=== PATIENT | female | born 1975 | race Caucasian/White ===

== ENCOUNTER 2019-12-23 12:18 | Emergency (ER) | payer OTHER ==
--- NOTE | 2019-12-23 13:16 | EDM.PDOC ---
ED HPI GENERAL MEDICAL PROBLEM - General Chief Complaint: General Stated Complaint: SHAKY, DOES NOT FEEL WELL Time Seen by Provider: 12/23/19 13:08 Source of Information: Reports: Patient History Limitations: Reports: No Limitations - History of Present Illness INITIAL COMMENTS - FREE TEXT/NARRATIVE: HISTORY AND PHYSICAL: History of present illness: Patient is a 44-year-old female presents to the ED with complaint of lightheaded and shakiness. She states she was at breakfast this morning waiting on her food when she began feeling shaky, lightheaded, clammy and nauseous. She states this only lasted briefly before resolving on its own. She states she had not had anything to eat this morning. Blood sugar on arrival is 75. Patient denies significant past medical history. She states she had a partial hysterectomy over 1 month ago and is on iron supplements currently as she had some blood loss with this surgery. Review of systems: As per history of present illness and below otherwise all systems reviewed and negative. Past medical history: As per history of present illness and as reviewed below otherwise noncontributory. Surgical history: As per history of present illness and as reviewed below otherwise noncontributory. Social history: No reported history of drug or alcohol abuse. Family history: As per history of present illness and as reviewed below otherwise noncontributory. Physical exam: General: Patient sitting comfortably in no acute distress and nontoxic appearing HEENT: Atraumatic, normocephalic, pupils reactive, negative for conjunctival pallor or scleral icterus, mucous membranes moist, throat clear, neck supple, nontender, trachea midline. No meningeal signs. Lungs: Clear to auscultation, breath sounds equal bilaterally, chest nontender. Heart: S1S2, regular, negative for clicks, rubs, or overt murmur. Abdomen: Soft, nondistended, nontender. Negative for masses or hepatosplenomegaly. Negative for costovertebral tenderness. No rigidity, rebound , guarding. Pelvis: Stable nontender. Genitourinary: Deferred. Rectal: Deferred. Extremities: Atraumatic, negative for cords or calf pain. Neurovascular unremarkable. Neuro: Awake, alert, oriented. Cranial nerves II through XII unremarkable. Cerebellum unremarkable. Motor and sensory unremarkable throughout. Exam nonfocal. Notes: Diagnostics: CBC, CMP, EKG Therapeutics: none Prescriptions: none Impression: Medical screening exam, hypoglycemia Plan: Follow-up with primary care provider Return to ED as needed discussed Definitive disposition and diagnosis as appropriate pending reevaluation and review of above. - Related Data Allergies Allergy/AdvReac Type Severity Reaction Status Date / Time No Known Allergies Allergy Verified 12/23/19 12:51 Home Meds: Home Meds . [No Known Home Meds] 12/23/19 [History] Past Medical History - Past Surgical History Female Surgical History: Reports: Hysterectomy Social & Family History - Tobacco Use Smoking Status *Q: Never Smoker - Recreational Drug Use Recreational Drug Use: No ED ROS GENERAL - Review of Systems Review Of Systems: Comprehensive ROS is negative, except as noted in HPI. ED EXAM, GENERAL - Physical Exam Exam: See Below (see dictation) Course - Vital Signs Last Recorded V/S: Last Vital Signs Temp 98.6 F 12/23/19 12:51 Pulse 92 12/23/19 12:51 Resp 16 12/23/19 12:51 BP 128/66 12/23/19 12:51 Pulse Ox 100 12/23/19 12:51 - Orders/Labs/Meds Orders: Active Orders 24 hr Category Date Time Status EKG Documentation Completion [RC] STAT Care 12/23/19 13:08 Ordered Labs: Laboratory Tests 12/23/19 12/23/19 12/23/19 Range/Units 12:49 13:38 13:38 WBC 6.38 (4.0-11.0) K/uL RBC 4.40 (4.30-5.90) M/uL Hgb 12.3 (12.0-16.0) g/dL Hct 38.1 (36.0-46.0) % MCV 86.6 (80.0-98.0) fL MCH 28.0 (27.0-32.0) pg MCHC 32.3 (31.0-37.0) g/dL RDW Std Deviation 53.0 (28.0-62.0) fl RDW Coeff of Garcia 17 H (11.0-15.0) % Plt Count 335 (150-400) K/uL MPV 10.20 (7.40-12.00) fL Neut % (Auto) 65.3 (48.0-80.0) % Lymph % (Auto) 28.7 (16.0-40.0) % Real % (Auto) 5.2 (0.0-15.0) % Eos % (Auto) 0.6 (0.0-7.0) % Baso % (Auto) 0.2 (0.0-1.5) % Neut # (Auto) 4.2 (1.4-5.7) K/uL Lymph # (Auto) 1.8 (0.6-2.4) K/uL Real # (Auto) 0.3 (0.0-0.8) K/uL Eos # (Auto) 0.0 (0.0-0.7) K/uL Baso # (Auto) 0.0 (0.0-0.1) K/uL Nucleated RBC % 0.0 /100WBC Nucleated RBCs # 0 K/uL Sodium 143 (136-145) mmol/L Potassium 4.0 (3.5-5.1) mmol/L Chloride 106 (98-107) mmol/L Carbon Dioxide 24.5 (21.0-32.0) mmol/L BUN 6 L (7.0-18.0) mg/dL Creatinine 0.7 (0.6-1.0) mg/dL Est Cr Clr Drug Dosing 96.01 mL/min Estimated GFR (MDRD) > 60.0 ml/min Glucose 90 (74-106) mg/dL POC Glucose 75 (60-110) mg/dL Calcium 8.9 (8.5-10.1) mg/dL Departure - Departure Time of Disposition: 14:40 Disposition: Home, Self-Care 01 Condition: Good Clinical Impression: Encounter for medical screening examination, Hypoglycemia - Discharge Information Instructions: Medical Screening Exam, Hypoglycemia, [id number] Referrals: PCP,Not In Area [Primary Care Provider] - Forms: ED Department Discharge Additional Instructions: The following information is given to patients seen in the emergency department who are being discharged to home. This information is to outline your options for follow-up care. We provide all patients seen in our emergency department with a follow-up referral. The need for follow-up, as well as the timing and circumstances, are variable depending upon the specifics of your emergency department visit. If you don't have a primary care physician on staff, we will provide you with a referral. We always advise you to contact your personal physician following an emergency department visit to inform them of the circumstance of the visit and for follow-up with them and/or the need for any referrals to a consulting specialist. The emergency department will also refer you to a specialist when appropriate. This referral assures that you have the opportunity for follow-up care with a specialist. All of these measure are taken in an effort to provide you with optimal care, which includes your follow-up. Under all circumstances we always encourage you to contact your private physician who remains a resource for coordinating your care. When calling for follow-up care, please make the office aware that this follow-up is from your recent emergency room visit. If for any reason you are refused follow-up, please contact the [facility] Emergency Department at and asked to speak to the emergency department charge nurse. [facility] [address] [place], [place] [id number] [place] [address] Follow-up with primary care provider Return to ED as needed discussed Sepsis Event Note - Evaluation Sepsis Screening Result: No Definite Risk - Focused Exam Vital Signs: Vital Signs Temp Pulse Resp BP Pulse Ox 12/23/19 12:51 98.6 F 92 16 128/66 100 Date Exam was Performed: 12/23/19 Time Exam was Performed: 14:50 - My Orders Last 24 Hours: My Active Orders 12/23/19 13:08 EKG Documentation Completion [RC] STAT - Assessment/Plan Last 24 Hours: My Active Orders 12/23/19 13:08 EKG Documentation Completion [RC] STAT
[2019-12-23 14:24] LABS: BLOOD UREA NITROGEN,BUN 6 mg/dL (7.0-18.0); CARBON DIOXIDE,CO2 24.5 mmol/L (21.0-32.0); CHLORIDE,CL 106 mmol/L (98-107); GLUCOSE RANDOM 90 mg/dL (74-106); SODIUM,NA 143 mmol/L (136-145)
== END 2019-12-23 14:52 | disposition home or self-care (01) ==
LOC: MW.ED 12:18
DX: E16.2 Hypoglycemia, unspecified (principal)
CPT/HCPCS: 36415; 80048; 82962; 85025; 93005; 99284-25